=== PATIENT | female | born 1990 | race Caucasian/White ===

== ENCOUNTER 2023-03-13 08:17 | Inpatient (IN) | payer OTHER ==
[2023-03-13 08:44] VITALS: BMI 30.6
[2023-03-13] MEDS ORDERED: Misoprostol 200 MCG TAB PR PRN (08:54)
[2023-03-13] MEDS ORDERED: Ibuprofen 800 MG TAB PO PRN (08:54)
[2023-03-13] MEDS ORDERED: Lidocaine 1% (PF) 30 ML VIAL SC PRN (08:54)
[2023-03-13] MEDS ORDERED: Promethazine HCl 25 MG/ML VIAL IM PRN (08:54)
[2023-03-13] MEDS ORDERED: Ondansetron PF 4 MG/2 ML Vial IVP PRN (08:54)
[2023-03-13] MEDS ORDERED: Carboprost 250 MCG/ML AMP IM PRN (08:54)
[2023-03-13] MEDS ORDERED: HYDROcodone/Acetaminophen 5/325 mg Tablet PO PRN ×2 (08:54→17:07)
[2023-03-13] MEDS ORDERED: Tranexamic Acid 1,000 MG/10 ML VIAL IVP PRN (08:54)
[2023-03-13] MEDS ORDERED: Diphenoxylate HCl/Atropine Tablet PO PRN (08:54)
[2023-03-13] MEDS ORDERED: Acetaminophen 500 MG TAB PO PRN (08:54)
[2023-03-13] MEDS ORDERED: Methylergonovine 0.2 MG/ML VIAL IM PRN (08:54)
[2023-03-13] MEDS ORDERED: hydrALAZINE 20 MG/ML VIAL SLOW IVP PRN (08:54)
[2023-03-13] MEDS ORDERED: hydrALAZINE 20 MG/ML VIAL ONE (09:04)
[2023-03-13] MEDS ORDERED: NS w/ Oxytocin 30 units 500 ML ONE (09:08)
[2023-03-13] MEDS ORDERED: fentaNYL 50 mcg/mL 1 mL Vial SLOW IVP PRN (09:20)
[2023-03-13] MEDS: NS w/ Oxytocin 30 units 500 ML IV SCH ×2 (09:20→10:49)
[2023-03-13] MEDS ORDERED: Magnesium Sulfate 20 gm/500 ml 20 GM/500 ML BAG ONE (09:33)
[2023-03-13] MEDS ORDERED: Labetalol HCl 100 MG/20 ML VIAL ONE (09:33)
[2023-03-13 09:39] LABS: Hemoglobin 13.2 g/dL (12.0-15.5); Mean Corpuscular HGB CONC 34.5 g/dL (32.0-36.0); Mean Corpuscular Hemoglobin 30.9 pg (27.0-33.0); Mean Corpuscular Volume 89.7 fl (81.6-98.3); Mean Platelet Volume 11.3 fl (7.4-10.4); Platelet Count 197 10x3/uL (150-450); RBC Distribution Width 12.9 % (11.5-14.5); Red Blood Cell (RBC) Count 4.27 10x6/uL (3.90-5.03); White Blood Cell (WBC) Count 10.3 10x3/uL (3.5-10.5)
[2023-03-13] MEDS ORDERED: Labetalol HCl 100 MG/20 ML VIAL SLOW IVP PRN (09:43)
[2023-03-13] MEDS ORDERED: Lorazepam 2 MG/ML VIAL SLOW IVP PRN (09:43)
[2023-03-13] MEDS ORDERED: Calcium Gluc 4.6 MEQ/10 ML (100 MG/ML) SLOW IVP PRN (09:43)
[2023-03-13] MEDS ORDERED: Magnesium Sulfate 20 gm/500 ml 20 GM/500 ML BAG IVPB SCH ×2 (09:45)
[2023-03-13 10:13] LABS: Syphilis Antibody Nonreactive (Nonreactive); Syphilis Antibody Index 0.04 S/CO (<1.00 Non-Reactive)
[2023-03-13 10:15] LABS: HBSAg Index 0.14 S/CO (0-0.99); Hep B Surf Ag - L&D Non-Reactive S/CO (NonReactive)
[2023-03-13] MEDS: Lactated Ringer's 1,000 ML IV SCH (17:08)
[2023-03-13] MEDS: Ibuprofen 800 MG TAB PO SCH (22:13)
[2023-03-14] MEDS: Ibuprofen 800 MG TAB PO SCH ×3 (08:06→17:42)
[2023-03-14] MEDS ORDERED: hydrALAZINE 20 MG/ML VIAL SLOW IVP PRN (09:30)
[2023-03-14] MEDS ORDERED: Ondansetron PF 4 MG/2 ML Vial IVP PRN (09:30)
[2023-03-14] MEDS ORDERED: Boostrix 0.5 ML (Tdap) VIAL (>/=7 yrs of age) IM ONE (09:30)
[2023-03-14] MEDS ORDERED: Lanolin Ointment 7 GM TUBE TOP PRN (09:30)
[2023-03-14] MEDS ORDERED: Milk Of Magnesia 30 ML UDCUP PO PRN (09:30)
[2023-03-14] MEDS ORDERED: Bisacodyl 10 MG SUPP PR PRN (09:30)
[2023-03-14] MEDS ORDERED: diphenhydrAMINE 25 MG CAP PO PRN (09:30)
[2023-03-14] MEDS ORDERED: Preparation H Ointment 28 GM TUBE PR PRN (09:30)
[2023-03-14] MEDS ORDERED: Benzocaine-Menthol 82.5 ML CAN TOP PRN (09:30)
[2023-03-14] MEDS ORDERED: Docusate 100 MG CAP PO SCH (10:00)
[2023-03-14] MEDS ORDERED: Ferrous Sulfate 325 MG TAB PO SCH (10:00)
[2023-03-14] MEDS ORDERED: Prenatal Vitamin 1 TAB PO SCH (10:00)
[2023-03-14] MEDS: Ferrous Sulfate 325 MG TAB PO SCH (15:12)
[2023-03-14] MEDS: Lactated Ringer's 1,000 ML IV SCH (18:27)
[2023-03-14] MEDS ORDERED: NIFEdipine XL 30 MG TAB PO SCH (21:15)
[2023-03-15] MEDS: Ibuprofen 600 MG TAB PO PRN ×2 (02:17→08:46)
[2023-03-15 05:49] VITALS: TEMP 98.1
[2023-03-15] MEDS: Docusate 100 MG CAP PO SCH ×2 (07:55→08:47)
[2023-03-15 07:57] LABS: ALT (SGPT) 10 U/L (8-55); AST (SGOT) 19 U/L (5-34); Albumin 2.9 g/dL (3.5-5.0); Alkaline Phosphatase 94 U/L (40-110); Anion Gap 13 mmol/L (10-20); BUN (Urea Nitrogen) 10 mg/dL (7.0-18.7); Bilirubin, Total 0.3 mg/dL (0.2-1.2); Calc. Creatinine Clearance 156 mL/min (70-130); Calcium 8.3 mg/dL (7.8-10.44); Carbon Dioxide 22 mmol/L (22-29); Chloride 108 mmol/L (98-107); Estimated GFR 119; Globulin 2.4 g/dL (2.4-3.5); Glucose 75 mg/dL (70-105); Potassium 3.8 mmol/L (3.5-5.1); Protein, Total 5.3 g/dL (6.0-8.3); Sodium 139 mmol/L (136-145)
[2023-03-15 08:02] LABS: #Eosinphils 0.2 10x3/uL (0.0-0.5); #Monocytes 0.5 10x3/uL (0.0-1.1); #Neutrophils 6.3 10x3/uL (1.5-8.4); %Basophils 0.2 % (0.0-2.0); %Eosinophils 1.9 % (0.0-6.0); %Lymphocytes 16.3 % (18.0-47.0); %Monocytes 5.4 % (0.0-10.0); %Neutrophils 75.8 % (40.0-75.0); Hemoglobin 10.9 g/dL (12.0-15.5); Mean Corpuscular HGB CONC 33.4 g/dL (32.0-36.0); Mean Corpuscular Hemoglobin 30.9 pg (27.0-33.0); Mean Corpuscular Volume 92.4 fl (81.6-98.3); Mean Platelet Volume 11.2 fl (7.4-10.4); Platelet Count 173 10x3/uL (150-450); RBC Distribution Width 13.2 % (11.5-14.5); Red Blood Cell (RBC) Count 3.53 10x6/uL (3.90-5.03); White Blood Cell (WBC) Count 8.4 10x3/uL (3.5-10.5)
[2023-03-15] MEDS: Ferrous Sulfate 325 MG TAB PO SCH (08:47)
[2023-03-15] MEDS ORDERED: Prenatal Vitamin 1 TAB PO SCH (09:00)
[2023-03-15 11:22] VITALS: BP 118/77
[2023-03-15] MEDS ORDERED: NIFEdipine XL 30 MG TAB PO SCH (21:30)
== END 2023-03-15 13:05 | disposition home or self-care (01) | DRG 807 ==
LOC: CSHLD/OP 08:17 → CSHLD 09:30 → CSHPP 03-14 14:30
PROVIDERS: ADMIT Obstetrics & Gynecology; ATTEND Obstetrics & Gynecology
PROC: 10E0XZZ Delivery of Products of Conception, External Approach (ICD-10-PCS; principal; 2023-03-13)
PROC: 0KQM0ZZ Repair Perineum Muscle, Open Approach (ICD-10-PCS; 2023-03-13)
DX: O48.0 Post-term pregnancy (principal); Z37.0 Single live birth; Z3A.41 41 weeks gestation of pregnancy; O14.14 Severe pre-eclampsia complicating childbirth; F41.9 Anxiety disorder, unspecified; F32.A Depression, unspecified; O99.344 Other mental disorders complicating childbirth; O70.1 Second degree perineal laceration during delivery
CPT/HCPCS: 36415; 36416; 51702; 80053; 85025; 85027; 86780; 86850; 86900; 86901; 87340; 99285; J0360; J2001; J2590; J3475